=== PATIENT | female | born 1970 | race Caucasian/White ===

== ENCOUNTER 2023-05-26 06:31 | Day surgery (SDC) | payer BC ==
[~2023-05-26 06:31] MED LIST: Dextrose 5%-0.45% NaCl 1,000 ML IV SCH
[2023-05-26] MEDS ORDERED: Midazolam 1 MG/ML 2 ML SDV IV ONE ×5 (06:32→07:52)
[2023-05-26] MEDS ORDERED: fentaNYL 100 MCG/2 ML SDV IV ONE ×3 (06:32→07:41)
[2023-05-26] MEDS ORDERED: Midazolam 1 MG/ML 2 ML SDV ONE (07:03)
[2023-05-26] MEDS ORDERED: fentaNYL 100 MCG/2 ML SDV ONE (07:03)
[2023-05-26] MEDS ORDERED: Sodium Chloride 0.9% 1,000 ML IV SCH (07:50)
== END 2023-05-26 09:47 | disposition home or self-care (01) ==
LOC: DL.ENDO 06:31
PROVIDERS: ATTEND Internal Medicine Gastroenterology
DX: Z12.11 Encounter for screening for malignant neoplasm of colon (principal); K64.4 Residual hemorrhoidal skin tags; F32.A Depression, unspecified; F41.1 Generalized anxiety disorder; E66.09 Other obesity due to excess calories; Z68.23 Body mass index [BMI] 23.0-23.9, adult; Z98.890 Other specified postprocedural states
CPT/HCPCS: J2250; J3010; J7030; J7042